=== PATIENT | male | born 1965 | race American Indian/Alaskan Native ===

== ENCOUNTER 2017-09-25 12:09 | Emergency (ER) | payer MEDICAID, OTHER ==
[2017-09-25 12:35] VITALS: BP 136/86; PULSE 72; RESP 18; TEMP 98; O2SAT 97
--- NOTE | 2017-09-25 13:04 | RAD ---
Date of service: 09/25/2017 PROCEDURE: Radiographs of the Left Shoulder HISTORY: pain COMPARISON: No prior. FINDINGS: BONES: Lucency seen in the glenoid fossa on one view, likely a Mach line. JOINTS: Glenohumeral and acromioclavicular joint degenerative changed. SOFT TISSUES: Normal. OTHER FINDINGS: None. IMPRESSION: Lucency seen to the glenoid fossa on one view only, likely a Mach line, unlikely to represent acute fracture. If there is strong clinical concern for fracture, CT or MRI of the left shoulder can be obtained for further evaluation. Degenerative changes.
--- NOTE | 2017-09-25 13:16 | C.PDOC ---
History Of Present Illness 51 yo male come in for evaluation of left shoulder pain gradually developed for past 3 days. 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 Pt reports, was unable to sleep last night duet to pain over Left shoulder. Pain is localized over left shoulder and worse with Left arm lifting. Otherwise, pt denies known direct trauma or injury, fever, chills, headache, dizziness, neck pain, CP, SOB, dyspnea, diaphoresis, palpitation, denies weakness, sensory or vascular deficits to Left arm. Ambulate to Ed for evaluation, not in any apparent distress. Time Seen by Provider: 09/25/17 12:39 Chief Complaint (Nursing): Upper Extremity Problem/Injury History Per: Patient Past Medical History Reviewed: Historical Data, Nursing Documentation, Vital Signs Vital Signs: Last Vital Signs Temp 98.0 F 09/25/17 12:33 Pulse 72 09/25/17 12:33 Resp 18 09/25/17 12:33 BP 136/86 09/25/17 12:33 Pulse Ox 97 09/25/17 12:33 - Medical History PMH: Asthma (childhood history of asthma), CAD (last stent 2012) Family History: States: No Known Family Hx - Social History Hx Tobacco Use: Yes Hx Alcohol Use: No Hx Substance Use: No Review Of Systems Except As Marked, All Systems Reviewed And Found Negative. Constitutional: Negative for: Fever, Chills Eyes: Negative for: Vision Change Cardiovascular: Negative for: Chest Pain, Palpitations, Orthopnea, Edema, Light Headedness Respiratory: Negative for: Cough, Shortness of Breath, SOB with Excertion, Pleuritic Pain, Wheezing Gastrointestinal: Negative for: Nausea, Vomiting Musculoskeletal: Positive for: Shoulder Pain (Left) Skin: Negative for: Rash Neurological: Negative for: Weakness, Numbness, Headache, Dizziness Physical Exam - Physical Exam Appears: Well, Non-toxic, No Acute Distress Skin: Normal Color, Warm, No Ecchymosis Eye(s): bilateral: PERRL Neck: Trachea Midline, No Midline Cervical Tenderness, No Paracervical Tenderness, No Step Off Deformity, Supple Chest: Symmetrical, No Deformity, No Tenderness Cardiovascular: Rhythm Regular, No Murmur, No JVD, Other ((-) carotid bruits B/L ) Back: No CVA Tenderness Extremity: Normal ROM (mod discomfort to Left arm extension/abduction. NO neurovascular deficits.), Tenderness (superior aspect left shoulder), No Deformity, No Swelling Neurological/Psych: Oriented x3, Normal Speech, Normal Motor, Normal Sensation, Normal Reflexes ED Course And Treatment ECG: Interpreted By Me, Viewed By Me ECG Rhythm: Sinus Rhythm ECG Interpretation: No Changes From Prior (03/20/14) Interpretation Of ECG: SR@75/min,LAD, LAFB, no acute ST-T changes. O2 Sat by Pulse Oximetry: 97 Pulse Ox Interpretation: Normal - Other Rad Left shoulder X-Ray: Read By Radiologist Interpretation: . Progress Note: On re-evaluation, pt is afebrile, hemodynamicaly stable. Non- toxic. PulseOx 97% RA. ENT: no acute findings,. neck: SUpple, (-) JVD, (-) carotid bruits B/L. Lungs: CTA B/L, BS equal B/L. CVS: (+)S1S2, reg. Neurologicaly intact. EKG review- normal study. left shoulde xray review c/w OA. Pt has clinical findings c/w left shoulder tendonitis. Pt advised on course of ds. ref. to f/u with PMD, Ortho in 2-3 days for re-evaluation. Disposition Counseled Patient/Family Regarding: Studies Performed, Diagnosis, Need For Followup, Rx Given - Disposition Referrals: [facility] [Outside] Chava Graf III, MD [Staff Provider] - Disposition: HOME/ ROUTINE Disposition Time: 13:13 Condition: STABLE Additional Instructions: Take medication as prescribed Follow up with PMD, orthopedist in 2-3 days for re-evaluation. return if any new changes. Prescriptions: Methocarbamol [Robaxin] 500 mg PO TID #14 tab traMADol [Ultram] 50 mg PO TID #7 tab Instructions: Calcific Tendonitis of the Shoulder (DC) Forms: [facility] (Ugandan), Work Excuse - Clinical Impression Clinical Impression: Shoulder tendonitis
--- NOTE | 2017-09-27 12:04 | CARD ---
APPROVED REPORT Date of service: 09/25/2017 EKG Measurement Heart [id number] <Conclusion> Normal sinus rhythm Possible Left atrial enlargement Left anterior fascicular block Anterolateral infarct, age undetermined Abnormal ECG
== END 2017-09-25 14:15 | disposition home or self-care (01) ==
LOC: C.ER 12:09
DX: M75.92 Shoulder lesion, unspecified, left shoulder (principal)